=== PATIENT | male | born 1960 | race Caucasian/White ===

== ENCOUNTER 2017-12-12 07:18 | Day surgery (SDC) | payer BC ==
[2017-12-12] MEDS ORDERED: TETRACAINE 0.5% OPHTH 1 DOSE AFFEYE ONE ×2 (07:45→10:03)
[2017-12-12] MEDS ORDERED: VIGAMOX 0.5% OPHTH 1 DOSE AFFEYE ONE ×5 (07:50→10:23)
[2017-12-12] MEDS ORDERED: PROLENSA OPHTH 1 DOSE AFFEYE ONE (08:01)
[2017-12-12] MEDS ORDERED: ALPHAGAN-P OPHTH 1 DOSE AFFEYE ONE (08:02)
[2017-12-12] MEDS ORDERED: AK-DILATE 2.5% OPHTH 1 DOSE OP ONE ×3 (08:03→08:05)
[2017-12-12] MEDS ORDERED: MYDRIACIL OPHTH 1 DOSE AFFEYE ONE ×3 (08:03→08:05)
[2017-12-12] MEDS ORDERED: CYCLOGYL 1% OPHTH 1 DOSE OP ONE ×3 (08:03→08:05)
[2017-12-12] MEDS ORDERED: NS 500 ML IV 500 ML IV ONE (08:10)
[2017-12-12] MEDS ORDERED: BETADINE OPHTH SOLN 5% EACHEYE ONE (10:03)
[2017-12-12] MEDS ORDERED: ADRENALINE CHL INJ IJ ONE (10:13)
[2017-12-12] MEDS ORDERED: XYLOCAINE-MPF 1% IJ ONE (10:13)
[2017-12-12] MEDS ORDERED: DUOVISC IO ONE (10:13)
[2017-12-12] MEDS ORDERED: BSS OPHTH (PLAIN) 500 ML with VANCOMYCIN HCL 500 MG VIAL 25 MG, ADRENALINE CHL INJ 1 MG IR ONE ×3 (10:13)
[2017-12-12 10:47] VITALS: BP 151/73
[2017-12-12] MEDS ORDERED: DIPRIVAN VIAL ONE (14:04)
== END 2017-12-12 10:44 | disposition home or self-care (01) ==
LOC: SURG1 07:18
PROVIDERS: ATTEND Ophthalmology
PROC: 08DK3ZZ Extraction of Left Lens, Percutaneous Approach (ICD-10-PCS; principal; 2017-12-12 11:15)
PROC: 08RK3JZ Replacement of Left Lens with Synthetic Substitute, Percutaneous Approach (ICD-10-PCS; principal; 2017-12-12 11:15)
DX: H25.12 Age-related nuclear cataract, left eye (principal); H25.012 Cortical age-related cataract, left eye; H52.222 Regular astigmatism, left eye
CPT/HCPCS: A4217; J0170; J3370; J3490

== ENCOUNTER 2017-12-19 11:57 | Day surgery (SDC) | payer BC ==
[2017-12-19] MEDS ORDERED: TETRACAINE 0.5% OPHTH 1 DOSE AFFEYE ONE ×3 (12:03→14:24)
[2017-12-19] MEDS ORDERED: VIGAMOX 0.5% OPHTH 1 DOSE AFFEYE ONE ×5 (12:05→14:35)
[2017-12-19] MEDS ORDERED: NS 500 ML IV 500 ML IV ONE (12:08)
[2017-12-19] MEDS ORDERED: PROLENSA OPHTH 1 DOSE AFFEYE ONE (12:17)
[2017-12-19] MEDS ORDERED: ALPHAGAN-P OPHTH 1 DOSE AFFEYE ONE (12:19)
[2017-12-19] MEDS ORDERED: MYDRIACIL OPHTH 1 DOSE AFFEYE ONE ×3 (12:20→12:24)
[2017-12-19] MEDS ORDERED: AK-DILATE 2.5% OPHTH 1 DOSE OP ONE ×3 (12:20→12:24)
[2017-12-19] MEDS ORDERED: CYCLOGYL 1% OPHTH 1 DOSE OP ONE ×3 (12:20→12:24)
[2017-12-19] MEDS ORDERED: BETADINE OPHTH SOLN 5% EACHEYE ONE (14:18)
[2017-12-19] MEDS ORDERED: BSS OPHTH (PLAIN) 500 ML with VANCOMYCIN HCL 500 MG VIAL 25 MG, ADRENALINE CHL INJ 1 MG IR ONE ×3 (14:24)
[2017-12-19] MEDS ORDERED: XYLOCAINE-MPF 1% IJ ONE (14:24)
[2017-12-19] MEDS ORDERED: DUOVISC IO ONE ×2 (14:24→14:29)
[2017-12-19] MEDS ORDERED: ADRENALINE CHL INJ IJ ONE (14:24)
[2017-12-19 17:11] VITALS: BP 139/77
== END 2017-12-19 15:00 | disposition home or self-care (01) ==
LOC: SURG1 11:57
PROVIDERS: ATTEND Ophthalmology
PROC: 08DJ3ZZ Extraction of Right Lens, Percutaneous Approach (ICD-10-PCS; principal; 2017-12-19 17:30)
PROC: 08RJ3JZ Replacement of Right Lens with Synthetic Substitute, Percutaneous Approach (ICD-10-PCS; principal; 2017-12-19 17:30)
DX: H25.11 Age-related nuclear cataract, right eye (principal); H25.011 Cortical age-related cataract, right eye; H52.221 Regular astigmatism, right eye
CPT/HCPCS: A4217; J0170; J3370